=== PATIENT | male | born 1965 | race Caucasian/White ===

== ENCOUNTER 2017-01-28 07:55 | Outpatient (CLI) | payer OTHER ==
[2013-04-17 07:45] VITALS: BP 139/90
--- NOTE | 2017-01-28 12:32 | Diagnostic Imaging Report ---
SAMUEL MUNOZ [facility] [id number] [facility] [address] [place] [address]. [id number] Report Submission Date: Jan 28, 2017 11:05:56 AM CDT Patient Study Name: LISA RAUSCH Date: Jan 28, 2017 7:09:58 AM CDT Modality Type: US Gender: M Description: BILAT US DVT : 69 Institution: [facility] Physician: SAMUEL MUNOZ Bilateral lower extremity venous duplex ultrasound Date of examination: January 28, 2017 CLINICAL HISTORY: LOWER EXTREMITY PAIN AND SWELLING, PROMINENT VARICOSE VEINS ( Hx) FINDINGS: There is normal compressibility, augmentation and Doppler color flow present within the veins of the right lower extremity. The right common femoral vein, saphenous vein and profunda are patent. The right popliteal and peroneal veins are patent with normal compressibility, augmentation and Doppler color flow. There is normal compressibility, augmentation and Doppler color flow present within the veins of the left lower extremity. The left common femoral vein, saphenous vein and profunda are patent. The left popliteal and peroneal veins are patent with normal compressibility, augmentation and Doppler color flow. IMPRESSION: No evidence of lower extremity deep vein thrombosis. Electronically signed on Jan 28, 2017 11:05:56 AM CDT by: Vijay KIRKLAND
== END 2017-01-28 07:56 ==
LOC: RAD 07:55
PROVIDERS: ATTEND Family Medicine
DX: M79.604 Pain in right leg (principal)
CPT/HCPCS: 93970

== ENCOUNTER 2019-03-15 13:20 | Outpatient (CLI) | payer OTHER ==
[2013-04-17 07:45] VITALS: BP 139/90
--- NOTE | 2019-03-15 13:49 | Diagnostic Imaging Report ---
SAMUEL MUNOZ [facility] [address] [facility].[address] [id number] Report Submission Date: Mar 15, 2019 1:48:02 PM CDT Patient Study Name: LISA RAUSCH Date: Mar 15, 2019 1:23:14 PM CDT Modality Type: DX Gender: M Description: KNEE 3 VIEWS : 69 Institution: [facility] Physician: SAMUEL MUNOZ EXAMINATION: KNEE 3 VIEWS HISTORY: RIGHT MEDIAL KNEE PAIN X 1 YEAR, NKI. (Hx) COMPARISON: None FINDINGS: The osseous structures are intact and well aligned without acute fracture or dislocation. The joint space is preserved. There is minimal chondrocalcinosis medially. There is a small superior patellar spur. No joint effusion is seen. IMPRESSION: 1. No acute fracture, dislocation, or significant degenerative change identified. 2. 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 Electronically signed on Mar 15, 2019 1:48:02 PM CDT by: Clint KIRKLAND
== END 2019-03-15 13:22 ==
LOC: RAD 13:20
PROVIDERS: ATTEND Family Medicine
DX: M25.561 Pain in right knee (principal)
CPT/HCPCS: 73562